=== PATIENT | female | born 1995 | race Two or more races ===

== ENCOUNTER 2024-09-11 04:33 | Inpatient (IN) | payer OTHER ==
[~2024-09-11] VITALS: Ht 160 cm; Wt 2.7 kg
[2024-09-11 04:47] VITALS: BP 122/78
[2024-09-11] MEDS ORDERED: PRENATAL TABLE1 EAC1 PO (05:07)
[2024-09-11] MEDS ORDERED: NIFE60TA3 PO (05:07)
[2024-09-11] MEDS ORDERED: DICLEGIS DR 101 EACH PO (05:11)
[2024-09-11] MEDS ORDERED: CEFAZOLIN SODIUM 1,000 MG VIAL IV SCH ×2 (06:15→12:00)
[2024-09-11] MEDS ORDERED: RINGERS SOLUTION,LACTATED 1,000 ML IV SCH (06:15)
[2024-09-11 07:27] VITALS: BP 117/71
[2024-09-11] MEDS ORDERED: ERYTHROMYCIN BASE OPHT 1GM EACH TUBE OP ONE (09:56)
[2024-09-11] MEDS ORDERED: OXYTOCIN 10 UNITS/ML VIAL ONE ×2 (09:56→13:39)
[2024-09-11] MEDS ORDERED: CARBOPROST TROMETHAMINE 250 MCG/ML AMPUL IM ONE ×2 (10:16→13:42)
[2024-09-11] MEDS ORDERED: PROMETHAZINE HCL 25 MG/ML AMPUL IV SCH (12:00)
[2024-09-11] MEDS ORDERED: KETOROLAC TROMETHAMINE 60 MG VIAL IM STA (12:41)
[2024-09-11] MEDS ORDERED: KETOROLAC TROMETHAMINE 30 MG VIAL IM SCH (13:00)
[2024-09-11] MEDS ORDERED: KETOROLAC TROMETHAMINE 60 MG VIAL IM ONE (13:41)
[2024-09-11 15:32] LABS: BASO % 0.4 % (0.1-1.2); EOS # 0.17 (0.04-0.54); EOS % 0.8 % (0.7-7.0); LYMPH # 2.72 (1.18-3.74); LYMPH % 12.3 % (19.3-53.1); MEAN CORPUSCULAR HEMOGLOBIN 33.3 pg (25.6-32.2); MONO # 1.67 (0.24-0.82); MONO % 7.5 % (4.7-12.5); NEUT # 16.67 (1.56-6.13); NEUT % 75.3 % (34.0-71.1); PLATELET COUNT 242 K/uL (163-369); RED BLOOD COUNT 2.34 M/uL (3.93-5.22); RED CELL DISTRIBUTION WIDTH 13.1 % (11.6-14.4)
[2024-09-11 16:08] LABS: HEMATOCRIT 21.4 % (34.1-44.9); HEMOGLOBIN 7.8 g/dL (11.2-15.7)
[2024-09-11] MEDS ORDERED: CARBOPROST TROMETHAMINE 250 MCG/ML AMPUL IM STA (18:39)
[2024-09-11] MEDS ORDERED: PROMETHAZINE HCL 25 MG/ML AMPUL ONE (18:40)
[2024-09-11] MEDS ORDERED: CEFAZOLIN SODIUM 1,000 MG VIAL ONE (18:40)
[2024-09-11 19:25] VITALS: BP 118/77; O2SAT 99
[2024-09-11] MEDS ORDERED: OXYTOCIN 1,000 ML IV SCH (22:00)
[2024-09-11 23:35] VITALS: BP 111/69
[2024-09-12 04:15] VITALS: BP 116/73; O2SAT 100
[2024-09-12] MEDS ORDERED: NAPROXEN 500 MG TABLET PO PRN (05:00)
[2024-09-12 07:18] VITALS: BP 114/77
[2024-09-12 08:02] LABS: BASO % 0.4 % (0.1-1.2); EOS # 0.13 (0.04-0.54); EOS % 0.7 % (0.7-7.0); LYMPH # 2.89 (1.18-3.74); LYMPH % 15.1 % (19.3-53.1); MEAN CORPUSCULAR HEMOGLOBIN 32.7 pg (25.6-32.2); MONO # 1.55 (0.24-0.82); MONO % 8.1 % (4.7-12.5); NEUT # 13.98 (1.56-6.13); NEUT % 73.1 % (34.0-71.1); PLATELET COUNT 182 K/uL (163-369); RED CELL DISTRIBUTION WIDTH 13.2 % (11.6-14.4)
[2024-09-12 08:12] LABS: HEMATOCRIT 23.4 % (34.1-44.9); HEMOGLOBIN 8.5 g/dL (11.2-15.7)
[2024-09-12] MEDS ORDERED: IRON FUM,PS/FOLIC/BCOMP,C NO.9 1 CAP CAPSULE PO STA (10:23)
[2024-09-12] MEDS ORDERED: OXYTOCIN 1,000 ML IV SCH (10:30)
[2024-09-12 11:36] VITALS: BP 136/84
[2024-09-12] MEDS ORDERED: CEFAZOLIN SODIUM 1,000 MG VIAL IV SCH (12:00)
[2024-09-12 12:47] VITALS: BP 116/79
[2024-09-12] MEDS ORDERED: IRON FUM,PS/FOLIC/BCOMP,C NO.9 1 CAP CAPSULE PO SCH (17:00)
[2024-09-12 18:08] VITALS: BP 127/84
[2024-09-12 18:18] LABS: BASO % 0.4 % (0.1-1.2); EOS # 0.27 (0.04-0.54); EOS % 1.2 % (0.7-7.0); LYMPH % 13.3 % (19.3-53.1); MEAN CORPUSCULAR HEMOGLOBIN 32.4 pg (25.6-32.2); MONO # 1.58 (0.24-0.82); MONO % 7.2 % (4.7-12.5); NEUT % 74.2 % (34.0-71.1); PLATELET COUNT 227 K/uL (163-369); RED BLOOD COUNT 2.72 M/uL (3.93-5.22)
[2024-09-12 18:22] LABS: HEMATOCRIT 24.6 % (34.1-44.9); HEMOGLOBIN 8.8 g/dL (11.2-15.7)
[2024-09-13] VITALS: BP 126/76
[2024-09-13 05:00] VITALS: BP 121/75
[2024-09-13 08:39] VITALS: BP 133/86
[2024-09-13] MEDS ORDERED: IRON FUM,PS/FOLIC/BCOMP,C NO.9 1 CAP CAPSULE PO SCH (10:09)
== END 2024-09-13 13:39 | disposition home or self-care (01) | DRG 788 ==
LOC: LDR 04:33 → O/R 04:33 → OB/GYN 15:23 → LDR 19:57 → OB/GYN 09-12 10:26
PROVIDERS: ADMIT Specialist; ATTEND Specialist
PROC: 4A1HXCZ Monitoring of Products of Conception, Cardiac Rate, External Approach (ICD-10-PCS; 2024-09-11)
PROC: 10D00Z1 Extraction of Products of Conception, Low, Open Approach (ICD-10-PCS; principal; 2024-09-11 14:45)
DX: O69.0XX0 Labor and delivery complicated by prolapse of cord, not applicable or unspecified (principal); Z3A.37 37 weeks gestation of pregnancy; Z37.0 Single live birth